=== PATIENT | male | born 2005 | race Caucasian/White ===

== ENCOUNTER 2024-09-08 21:22 | Emergency (ER) | payer SELFPAY ==
[2024-09-08 21:24] VITALS: BP 128/83; PULSE 93; RESP 16; TEMP 36.8; O2SAT 98; BMI 25.1
[2024-09-08 21:58] LABS: Absolute Lymphocyte Count 1.23 X10^3/uL (0.83-4.51); Absolute Neutrophil Count 4.6 X10^3/uL (2.0-7.7); Basophil# 0.04 X10^3/uL; Basophil% 0.6 % (0-1); Eosinophil# 0.02 X10^3/uL; Eosinophils% 0.3 % (0-5); Hematocrit 44.1 % (40-54); Hemoglobin 15.2 g/dL (13.0-16.5); Lymphocyte # 1.23 X10^3/ul (0.83-4.51); Lymphocyte % 19.2 % (19-41); Mean Corp Hgb Conc 34.5 g/dL (32-36); Mean Corpuscular Hgb 31.1 pg (27.0-32.0); Mean Corpuscular Volume 90.2 fL (80-94); Mean Platelet Vol. 11.1 fl (6.2-12.0); Monocyte# 0.47 X10^3/uL; Monocyte% 7.3 % (0-10); NRBC Flagged by Analyzer 0 % (0-5); Neutrophil # 4.63 X10^3/uL (2.7-7.7); Neutrophil % 72.3 % (47-70); Platelet Count 132 K/mm3 (150-450); RBC Distribution Width CV 11.9 % (11.6-14.6); RBC Distribution Width SD 38.9 fl (35.1-43.9); Red Blood Count 4.89 M/mm3 (4.6-6.2); White Blood Count 6.4 K/mm3 (4.4-11.0)
--- NOTE | 2024-09-08 21:58 | EDS_ITS ---
HPI HPI - Psych History of Present Illness Chief Complaint: Suicidal Informant: patient Onset/Context/Timing Onset: Today Context: Sudden Onset Timing: Continuous Worsened by: - (Nothing) Relieved by: Nothing Associated Symptoms Associated Symptoms - Psych: Positive for Depressed, Change in Eating, Suicidal Thoughts and Auditory Hallucinations; Negative for Change in sleeping, Paranoia or Visual Hallucinations Specific plan (suicidal thought): Choking himself Narrative Narrative: Patient presents with depression with suicidal ideations that began today. Patient states that they began rather suddenly. Patient states nothing made it worse and nothing made it better. Patient states he has had decreased in his eating habits. Patient states he has had thoughts of choking himself. Patient states he has been having some auditory hallucinations. Patient denies any visual hallucinations. Patient denies any paranoid ideations. [facility] Medical History (Updated 09/08/24 @ 22:05 by Meche Bucio) Concussion Manic episode, severe with psychotic symptoms Bipolar 1 disorder Home Medications ?Medication ?Instructions ?Recorded ?Last Taken ?Type famotidine 20 mg tablet (Acid 20 mg PO DAILY 09/08/24 Unknown History Controller) fluoxetine 20 mg capsule 20 mg PO DAILY 09/08/24 Unkn own History lamotrigine 200 mg tablet 200 mg PO DAILY 09/08/24 Unk nown History (Lamictal) quetiapine 200 mg tablet (Seroquel) 200 mg PO QHS 08/11 09/02 Unknown History Allergy/AdvReac Type Severity Reaction Status Date / Time No Known Allergies Allergy Verified 09/08/24 21:28 Surgical History no surgical history no surgical history Social History Smoking Status: Never smoker ROS ROS ED Constitutional Constitutional ED: Denies chills or fever(s) Eyes Eyes: Denies blurry vision or change in vision ENT ENT ED: Denies rhinorrhea or sore throat Cardiovascular Cardiovascular: Denies chest pain or palpitations Respiratory/Chest Respiratory/Chest: Denies cough or dyspnea Gastrointestinal Gastrointestinal: Denies nausea or vomiting Genitourinary Genitourinary ED: Denies dysuria or hematuria Musculoskeletal Musculoskeletal: Denies back pain or neck pain Integumentary Denies abscess or rash Neurologic Neurologic: Denies headache(s) or weakness Psychiatric Psychiatric: Reports depression, suicidal ideation and suicidal thoughts Allergic/Immunologic Allergic/Immunologic ED: Denies mouth swelling or urticaria EXAM Physical Exam Const Vital Signs: 09/08/24 21:24 09/08/24 23:20 Temperature 98.2 F Temperature Source Oral Pulse Rate 93 73 Respiratory Rate 16 17 Blood Pressure 128/83 H Blood Pressure Mean 98 Pulse Ox 98 94 Oxygen Delivery Method Room Air Room Air Positive well nourished and well developed General Appearance ED: well developed and NAD HEENT Reports moist mucous membranes normocephalic and atraumatic Neck supple and no JVD Resp normal respiratory effort and clear to auscultation bilaterally Cardio Rate: regular rate Rhythm: regular rhythm GI non-tender and non-distended Palpation: soft Neuro oriented x3, CN's II-XII intact bilaterally and no sensory deficits noted [place] Coma Scale: document GCS findings Spontaneous Obeys Commands Oriented 15 Sensorium / Orientation: alert Motor Exam: strength 5/5 throughout and muscle tone normal throughout Psych Appearance: grossly normal Attitude: calm Speech: minimal and soft Mood & Affect: depressed and flat affect Thought Content: suicidality, No homicidality, No phobia(s), No delusion(s) and hallucination(s) Positive for auditory MDM MDM MDM Narrative Medical decision making narrative: Medical screening labs will be obtained. CBC will be obtained to assess for leukocytosis and anemia. Basic metabolic profile will be obtained to assess for electrolyte abnormality and renal function. Serum alcohol level will be obtained to assess for alcohol intoxication. Urine drug screen will be obtained to assess for substance abuse. Lab Data Attestation: I reviewed the patient's lab results. Lab results narrative: CBC was reviewed and was within normal limits. Basic metabolic profile was reviewed. Potassium was slightly low at 3.4. Glucose was slightly elevated at 125. The remainder is within normal limits. Urine tox screen was reviewed and was negative. Serum alcohol level was reviewed and was less than 3.0. Labs: Laboratory Results - last 24 hr 09/08/24 09/08/24 21:44 22:33 WBC 6.4 RBC 4.89 Hgb 15.2 Hct 44.1 MCV 90.2 MCH 31.1 MCHC 34.5 RDW Std Deviation 38.9 RDW Coeff of Tavo 11.9 Plt Count 132 L MPV 11.1 Immature Gran % (Auto) 0.300 Neut % (Auto) 72.3 H Lymph % (Auto) 19.2 [place] % (Auto) 7.3 Eos % (Auto) 0.3 Baso % (Auto) 0.6 Absolute Neuts (auto) 4.6 Absolute Lymphs (auto) 1.23 Nucleated RBC % 0 Sodium 138 Potassium 3.4 L Chloride 105 Carbon Dioxide 27.0 Anion Gap 6 BUN 12 Creatinine 1.10 Estim Creat Clear Calc 114.09 Est GFR (MDRD) Af Amer 109 Est GFR (MDRD) Non-Af 90 BUN/Creatinine Ratio 10.9 Glucose 125 H Calcium 9.5 Urine Opiates Screen NEGATIVE Urine Methadone Screen NEGATIVE Ur Barbiturates Screen NEGATIVE Ur Phencyclidine Scrn NEGATIVE Ur Amphetamines Screen NEGATIVE MDMA (Ecstasy) Screen NEGATIVE U Benzodiazepines Scrn NEGATIVE Urine Cocaine Screen NEGATIVE U Cannabinoids Screen NEGATIVE Ur Drug Screen Comment Ethyl Alcohol < 3.0 Management Discussion w/another healthcare provider: Behavioral health Treatment and Re-Evaluation Narrative: Suicide precautions were maintained. Patient is medically cleared for crisis evaluation. Crisis was in to evaluate the patient and recommended inpatient treatment. Care of the patient will be turned over to the oncoming physician pending placement to psychiatric facility. Discharge Plan Triage Chief Complaint: Suicidal ED Provider: Tomas Davey Dx/Rx/DC Orders Clinical Impression: Depression, Suicidal ideation Prescriptions: No Action fluoxetine 20 mg capsule 20 mg PO DAILY lamotrigine [Lamictal] 200 mg tablet 200 mg PO DAILY famotidine [Acid Controller] 20 mg tablet 20 mg PO DAILY quetiapine [Seroquel] 200 mg tablet 200 mg PO QHS Primary Care Provider: Care Physician,No Primary Referrals: [facility] Doctor,Out of [Non-Staff] - Print Language: Portuguese
[2024-09-08 22:11] LABS: Alcohol, Blood (Medical)-Serum < 3.0 mg/dL
[2024-09-08 22:12] LABS: Anion Gap 6 (5-15); BUN 12 mg/dL (7-18); BUN/Creat Ratio 10.9 RATIO (10-20); Calcium,Total 9.5 mg/dL (8.5-10.1); Chloride 105 mmol/L (98-107); EST Glomerular Filtration Rate 90 mL/min (>60); Est Glom Filt Rate - Afr Amer 109 mL/min (>60); Estimated Creatinine Clearance 114.09 ml/min; Glucose 125 mg/dL (74-106); Potassium 3.4 mmol/L (3.5-5.1); Sodium Level 138 mmol/L (136-145)
[2024-09-08 22:59] LABS: Amphetamine Urine NEGATIVE (<1000 ng/mL); Barbiturate Urine VISTA NEGATIVE (< 200 ng/mL); Benzodiazepine Urine VISTA NEGATIVE (< 200 ng/mL); Cocaine Urine VISTA NEGATIVE (< 300 ng/mL); Ecstacy Urine VISTA NEGATIVE (< 500 ng/mL); Methadone Urine VISTA NEGATIVE (< 300 ng/mL); PCP Urine VISTA NEGATIVE (< 25 ng/mL); THC Urine VISTA NEGATIVE (< 50 ng/mL); Vista UDS pH Range 7
[2024-09-08 23:20] VITALS: PULSE 73; RESP 17; O2SAT 94
[2024-09-09 06:47] VITALS: BP 122/63; PULSE 88; RESP 16; O2SAT 98
--- NOTE | 2024-09-09 08:06 | ED.RN ---
[facility] CALLED SAID [facility] WANTED SSI NUMBER AND PHOTO ID. NOT AVAILABLE. THEY ALSO WANTED EXACT TIME OF MEDICAL CLEARANCE.
--- NOTE | 2024-09-09 09:02 | ED.RN ---
PATIENT HAS DRAKE RESENDEZ. PENDING [facility].
--- NOTE | 2024-09-09 10:22 | ED.RN ---
ACCEPTED AT [facility] PICKUP AT 12 PM
[2024-09-09] MEDS: FLUoxetine 20 MG Capsule PO ×2 (11:11→11:12)
[2024-09-09] MEDS: lamoTRIgine 100 MG Tablet 200 MG PO ×2 (11:11→11:12)
[2024-09-09] MEDS: Famotidine 20 MG Tablet PO (11:12)
[2024-09-09 11:18] VITALS: BP 121/73; PULSE 84; RESP 16; TEMP 36.7; O2SAT 98
== END 2024-09-09 12:35 ==
PROVIDERS: Emergency Provider Emergency Medicine; Visit Provider Emergency Medicine
DX: R45.851 Suicidal ideations (principal); F31.9 Bipolar disorder, unspecified; R44.0 Auditory hallucinations; Z79.899 Other long term (current) drug therapy
CPT/HCPCS: 80048; 80307; 82077; 85025; 99285